=== PATIENT | female | born 1985 | race American Indian/Alaskan Native ===

== ENCOUNTER 2021-09-21 09:09 | Outpatient (CLI) | payer OTHER | END 2021-09-21 10:50 | disposition home or self-care (01) | LOC: PRENATAL 09:09 | PROVIDERS: ATTEND Obstetrics & Gynecology Maternal & Fetal Medicine | DX: O26.849 Uterine size-date discrepancy, unspecified trimester (principal); O09.529 Supervision of elderly multigravida, unspecified trimester; O10.019 Pre-existing essential hypertension complicating pregnancy, unspecified trimester; O99.210 Obesity complicating pregnancy, unspecified trimester; O34.219 Maternal care for unspecified type scar from previous cesarean delivery; Z3A.37 37 weeks gestation of pregnancy ==